=== PATIENT | female | born 1960 | race Caucasian/White ===

== ENCOUNTER → 2021-01-25 09:23 | Outpatient (CLI) | payer MEDICARE, MEDICAID, SELFPAY ==
--- NOTE | 2021-01-25 09:27 | DI.RAD.S_ITS ---
PROCEDURE: XR CERVICAL SPINE 4V OR 5V INDICATIONS: cervical radiculopathy TECHNIQUE: 5 views of the cervical spine acquired. COMPARISON: None. FINDINGS: Bones: No fracture. Grade 1 anterolisthesis of C4 on C5. Multilevel degenerative endplate sclerosis and spurring. Diffuse facet arthropathy. Moderate narrowing of the C5-C6 and C6-C7 disc spaces. No definite bony foraminal stenosis identified Soft tissues: No prevertebral soft tissue swelling. IMPRESSION: Mid to lower cervical spondylosis and facet arthropathy. Dictated by: Jabari Silver M.D. on 01/25/2021 at 11:01 Approved by: Jabari Silver M.D. on 01/25/2021 at 11:02
--- NOTE | 2021-01-25 09:27 | DI.MRI.S_ITS ---
PROCEDURE: MR CERVICAL SPINE WO CON INDICATIONS: cervical radiculopathy TECHNIQUE: Noncontrast sagittal T1 spin echo and T2 fast spin echo, sagittal STIR, foraminal oblique sagittal T2 fast spin echo, and axial gradient echo or T2 fast spin echo through the cervical spine. COMPARISON: [facility], CR, XR CERVICAL SPINE 4V OR 5V, 01/25/2021, 9:55. FINDINGS: Image quality: Excellent. Alignment and Curvature: There is loss of normal cervical lordosis. There is mild grade 1 retrolisthesis of C6 on C7. Bone Marrow: Marrow demonstrates normal overall signal. Mild reactive signal within the endplates adjacent to the C6-C7 intervertebral disc. Spinal Cord: Visualized spinal cord has normal size and signal. No cerebellar tonsillar herniation. Paraspinous Soft Tissues: No paravertebral masses. Prevertebral soft tissues are normal in thickness. C2-C3: Moderate disc desiccation. Mild diffuse disc bulge. Mild bilateral facet hypertrophy. Mild canal stenosis. No foraminal stenosis. C3-C4: Moderate disc desiccation. Mild disc height loss. Mild facet and uncovertebral hypertrophy. No significant canal stenosis. Mild bilateral foraminal stenosis. C4-C5: Moderate disc desiccation. Moderate left and mild right facet and uncovertebral hypertrophy. Mild canal stenosis. Moderate left and mild right foraminal stenosis. C5-C6: Moderate disc desiccation. Mild disc height loss and diffuse disc bulge. Mild facet and uncovertebral hypertrophy bilaterally. Mild canal stenosis. Mild right and moderate left foraminal stenosis. C6-C7: Moderate disc desiccation. Mild diffuse disc bulge. Mild facet and uncovertebral hypertrophy. Moderate canal stenosis. Mild bilateral foraminal stenosis. C7-T1: Mild disc desiccation. Mild facet and uncovertebral hypertrophy bilaterally. Mild canal stenosis. Mild bilateral foraminal stenosis. IMPRESSION: 1. Multilevel degenerative disc and facet disease, as well as uncovertebral hypertrophy. 2. Multilevel canal stenoses, worst at C6-C7, where there is moderate canal stenosis. 3. Multilevel foraminal stenoses, worst at C4-C5 and C5-C6, where there are moderate foraminal stenosis as described above. Dictated by: Sharron Roman M.D. on 01/25/2021 at 10:11 Approved by: Sharron Roman M.D. on 01/25/2021 at 10:14
== END ==
PROVIDERS: PCP Family Medicine; Referring Provider Physical Medicine & Rehabilitation; Visit Provider Physical Medicine & Rehabilitation
DX: M54.12 Radiculopathy, cervical region (principal); M50.31 Other cervical disc degeneration, high cervical region; M48.02 Spinal stenosis, cervical region; M50.33 Other cervical disc degeneration, cervicothoracic region; M48.03 Spinal stenosis, cervicothoracic region; G89.4 Chronic pain syndrome
CPT/HCPCS: 72050; 72141

== ENCOUNTER → 2022-10-17 13:16 | Outpatient (CLI) | payer MEDICARE, MEDICAID, SELFPAY ==
--- NOTE | 2022-10-17 13:19 | DI.NM.S_ITS ---
PROCEDURE: NM KAMILA PERF SPECT R&S PHARM Rest and pharmacological stress myocardial perfusion SPECT with gated imaging and ejection fraction RADIOPHARMACEUTICAL: 24.0 mCi Tc-99m tetrafosmin IV at rest and 25.9 mCi Tc-99m tetrafosmin IV at peak effect of pharmacological stress. [id number] was performed. INDICATIONS: Abdominal aortic aneurysm, without rupture TECHNIQUE: Radiopharmaceutical was injected at peak stress test, and also at rest. SPECT images were obtained. SPECT myocardial perfusion images were displayed in short axis, horizontal long axis, and vertical long axis views. Gated images were reviewed using [employer] software. COMPARISON: None. CARDIAC STRESS: A pharmacologic stress test was performed under the supervision of an attending staff, using an infusion of regadenoson. Hemodynamic data: There is normal blood pressure and heart rate response to pharmacologic stress. Symptoms: The patient denied anginal chest pain. EKG: No diagnostic changes of ischemia in the setting of pharmacologic stress; occasional PVCs. FINDINGS: Raw data: There is good myocardial uptake of radiotracer. No significant motion artifacts. Left ventricle function: Gated images demonstrate normal left ventricular wall thickening. No segmental wall motion abnormalities. No transient ischemic dilation; TID is 1.09 (normal less than 1.3). Left ventricle resting end diastolic volume is 123 mL. Left ventricle stress ejection fraction is 56%; normal range is above 45%. Myocardial perfusion: There is a large size, mild intensity fixed anterior wall defect; a medium size, mild intensity partially reversible basal inferior wall defect; a small size, moderate intensity partially reversible apical inferior wall defect. IMPRESSION: Abnormal study but suspect low risk. The partially reversible basal and apical inferior wall defects are atypically located given that the mid inferior wall shows normal perfusion. In addition, wall motion is also normal suggesting attenuation artifact. The fixed anterior wall defect with normal wall motion is likely due to attenuation artifact. Unfortunately, there were no prone images to help clarify perfusion. Slightly increased LV end-diastolic volume. Dictated by: Flores Guaman D.O. on 10/18/2022 at 16:38 Approved by: Flores Guaman D.O. on 10/18/2022 at 16:46
[2022-10-17 14:20] LABS: COVID19 -Nasal RAPID Negative (Negative)
== END ==
PROVIDERS: Specialist; PCP Nurse Practitioner Family; Referring Provider Surgery Vascular Surgery; Visit Provider Surgery Vascular Surgery
DX: I71.40 Abdominal aortic aneurysm, without rupture, unspecified (principal); R94.39 Abnormal result of other cardiovascular function study; Z20.822 Contact with and (suspected) exposure to COVID-19
CPT/HCPCS: 78452; 87635; 93017; A9502; J2785

== ENCOUNTER 2023-05-09 23:35 | Emergency (ER) | payer MEDICARE, MEDICAID, SELFPAY ==
--- NOTE | 2023-05-09 23:40 | ED_ITS ---
HPI - General Adult General Chief complaint: Extremity Injury, Upper Stated complaint: fell and hurt rt shoulder Time Seen by Provider: 05/09/23 23:40 History of Present Illness HPI narrative: 63-year-old female smoker with history of neck problems presents with her son in the chief complaint of right shoulder pain after a fall just prior to arrival. She was exiting her daughter's car and lost her balance and fell back into the car and found herself wedged between the seat in the dashboard. She now has significant right shoulder pain and range of motion that is limited by pain. She denies other injuries. She denies any prodromal symptoms contributing to her fall. She is otherwise well and free of complaint Related Data Home Medications Medication Instructions Recorded Confirmed acetaminophen 500 mg tablet 1,000 mg PO Q6H PRN 12/07/20 02/08/21 (Tylenol Extra Strength) atorvastatin 40 mg tablet 40 mg PO DAILY 12/07/20 02/08/21 lactobacillus combination no.8 3 3,000 mmu cells PO DAILY 12/07/20 02/08/21 billion cell capsule (Adult Probiotic) levothyroxine 150 mcg capsule 150 mcg PO DAILY 12/07/20 02/08/21 lisinopril 20 mg tablet 20 mg PO DAILY 12/07/20 02/08/21 metformin 1,000 mg tablet 1,000 mg PO BID 12/07/20 02/08/21 Previous Rx's Medication Instructions Recorded gabapentin 300 mg capsule 300 mg PO TID NERVE PAIN #90 caps 08/21/21 celecoxib 200 mg capsule See Rx Instructions .Route 04/02/22 .COMPLEX #90 caps Allergies Allergy/AdvReac Type Severity Reaction Status Date / Time wool Allergy Intermediate RASH Verified 02/08/21 10:01 Review of Systems Review of Systems Narrative: GENERAL: Denies chills, fatigue, malaise, fever, sweats. HEENT: Denies sinus pain, ear pain, sore throat, difficulty swallowing, dizziness. RESPIRATORY: Denies dyspnea, cough, wheezing, hemoptysis, sputum. CARDIOVASCULAR: Denies chest pain, palpitations, orthopnea, edema, GASTROINTESTINAL: Denies nausea, vomiting, abdominal pain, diarrhea, constipation, melena. : Denies dysuria, frequency, incontinence, hematuria, urinary retention. MUSCULOSKELETAL: See HPI SKIN: Denies rash, skin lesions, or other NEUROLOGIC: Denies weakness, headache, numbness, change in speech, confusion, seizures, incoordination. PSYCHIATRIC: No concerning psychosocial issues. 12 point review of systems is negative except for those stated above Patient History Medical History Cervical radiculopathy Chronic pain syndrome Depression Facet arthropathy, cervical Surgical History H/O: hysterectomy Family History Father Cancer Sister Diabetes mellitus Congestive heart failure Social History Smoking Status: Former smoker Exam Narrative Exam Narrative: GEN: AOx3 and in mild distress HEAD: No evidence of traumatic injury NECK: No midline tenderness, step-offs or crepitance EYES: Pupils are equal, round, and reactive to light and accommodation. Extraoccular muscles are intact bilaterally. There is no subconjunctival hemorrhage or exudate. CHEST: Lungs are clear to auscultation bilaterally and free of wheezes, rales, or rhonchi. Heart rate is regular rhythm, there are no murmurs, clicks, rubs, or gallops. There is no chest wall tenderness. ABD: Abdomen is soft and nontender. There is no guarding or rebound. Bowel sounds are normal in all 4 quadrants. There is no mass or organomegaly. EXT: Right shoulder tender to palpate, range of motion limited secondary to pain, no obvious deformity. No numbness, tingling or weakness. No pain on palpation of elbow or wrist. Distal CMS intact SKIN: Warm, pink, and dry. No erythema or rash Initial Vital Signs Initial Vital Signs: Vital Signs Temperature 97.3 F L 05/09/23 23:41 Pulse Rate 65 05/09/23 23:41 Respiratory Rate 18 05/09/23 23:41 Blood Pressure 210/109 H 05/09/23 23:41 Pulse Oximetry 98 05/09/23 23:41 Oxygen Delivery Method Room Air 05/09/23 23:41 Procedures Orthopedic Splinting/Casting Injury #1: Side: right Upper Extremity Injury Location: shoulder Upper Extremity Immobilizer: sling/shoulder immobilizer Post splinting neuro exam: intact Post splinting vascular exam: intact Placed by: Nursing Medical Decision Making MDM Narrative Medical decision making narrative: [63] year old patient presents with fall with right shoulder pain Multiple etiologies for patient's symptoms considered including, but not limited to: [Fracture versus dislocation versus other] Prior Charts reviewed in our EMR Primary Historian: patient Imaging reviewed: No fracture or dislocation Patient's symptoms improved over duration of stay with above-stated therapies. Findings and discharge diagnosis discussed with patient/family followed by verbalization of understanding Return precautions discussed with patient/family whom verbalize understanding of diagnosis and plan Discharge Plan Departure Patient Disposition: Home Clinical Impression: Acute shoulder pain Instructions: DI for Shoulder Sprain Activity Restrictions/Additional Instructions: *You have been diagnosed with [right shoulder pain. As we discussed your history and physical exam are reassuring and the x-ray shows no sign of a fracture or dislocation.] *What to do: *Please continue to take your regular medications as directed. *Please follow up with your primary care provider in 2-3 days, call for an appointment. Let them know you were seen in the Emergency Department and that we ask that you be seen in follow up. We will electronically transmit a record of today's note if your PCP is in our system *If you do not have a primary care provider please contact the [facility] Resource line at [phone]. They will ask some questions about your medical history and help get you set up with a doctor in the community. *Return to Emergency Department if you should have any new, worsening or concerning symptoms, such as [fever greater than 101 F, shaking chills, worsening pain, persistent vomiting or other bothersome symptoms] Prescriptions: No Action gabapentin 300 mg capsule 300 mg PO TID Qty: 90 1RF Rx Instructions: TAKE 1-2 AT BEDTIME. CAN INCREASE TO THREE TIMES A DAY. THIS CAN BE SEDATING SO USE CAUTION WHILE TAKING THIS celecoxib 200 mg capsule See Rx Instructions .ROUTE .COMPLEX Qty: 90 1RF Dose Instruction: TAKE 1 CAPSULE BY MOUTH DAILY Rx Instructions: TAKE 1 CAPSULE BY MOUTH DAILY metformin 1,000 mg tablet 1,000 mg PO BID levothyroxine 150 mcg capsule 150 mcg PO DAILY lisinopril 20 mg tablet 20 mg PO DAILY atorvastatin 40 mg tablet 40 mg PO DAILY acetaminophen [Tylenol Extra Strength] 500 mg tablet 1,000 mg PO Q6H PRN Adult Probiotic 3 billion cell capsule 3,000 mmu cells PO DAILY Rx Instructions: administer with a meal Referrals: Cristina Patrick MD [Primary Care Provider] - Stand Alone Forms: Patient Portal/API
[2023-05-09 23:41] VITALS: BP 210/109; PULSE 65; RESP 18; TEMP 36.3; O2SAT 98; BMI 42.0
--- NOTE | 2023-05-09 23:44 | DI.RAD.S_ITS ---
PROCEDURE: XR SHOULDER RT MIN 2V INDICATIONS: fall with severe R shoulder pain TECHNIQUE: 2 views of the shoulder were acquired. COMPARISON: None. FINDINGS: Bones: No fractures or dislocations. No suspicious bony lesions. Visualized ribs appear intact. Soft tissues: No suspicious soft tissue calcifications. IMPRESSION: No visualized acute fracture or dislocation. However, if clinical concern and/or pain persist, short interval imaging followup in 7-10 days is recommended, as occult injury cannot be definitively excluded. Dictated by: Teagan Starr M.D. on 05/10/2023 at 0:09 Approved by: Teagan Starr M.D. on 05/10/2023 at 0:09
== END 2023-05-10 00:34 | disposition home or self-care (01) ==
PROVIDERS: Emergency Provider Emergency Medicine; PCP Student in an Organized Health Care Education/Training Program
DX: M25.511 Pain in right shoulder (principal)
CPT/HCPCS: 73030; 99282; 99283